=== PATIENT | male | born 1960 ===

== ENCOUNTER 2019-10-05 06:07 | Inpatient (IN) ==
[2019-10-05] MEDS ORDERED: GLUCAGON 1 MG VIAL IM PRN (08:49)
[2019-10-05] MEDS ORDERED: DEXTROSE 10% 250 ML BAG IV PRN (08:49)
[2019-10-05 12:07] LABS: Basophils % 0.3 % (0.0-0.8); Eosinophils % 0.2 % (0.00-10.9); Hematocrit 31.6 VOL% (42.0-52.0); Hemoglobin 10.7 GM/DL (14.0-18.0); Immature Granulocytes Absolute 0.28 #; Lymphocytes # 0.8 10*3/uL (1.4-4.0); Lymphocytes % 7.9 % (21.2-54.2); Mean Corpuscular HGB Conc 33.9 GM/DL (32-36); Mean Corpuscular Volume 88.5 FL (87-102); Mean Platelet Volume 9.2 FL (9.6-12.0); Monocytes % 3.6 % (1.7-12.7); NRBC # 0.02 10*3/uL; Platelet Count 517 T/CUMM (130-400); Red Blood Count 3.57 MC/CUMM (3.8-5.5); Red Cell Distribution Width 12.1 % (9.3-17.3); White Blood Count 9.5 T/CUMM (4-12)
[2019-10-05 12:29] LABS: Bilirubin,Total 0.4 MG/DL (0.2-1.0); Calcium 7.6 MG/DL (8.5-10.1); Osmolality,Calculated 278.7 MOS/KG (273-304); Total Protein 7.5 G/DL (6.4-8.3)
[2019-10-05] MEDS: INSULIN LISPRO 100 UNIT/ML SUBCUT SCH ×3 (12:30→20:13)
[2019-10-05] MEDS ORDERED: AZITHROMYCIN 250 MG TABLET PO ONE (14:00)
[2019-10-05] MEDS: GENTAMICIN 0.3% OPH SOLN 5 ML BOTTLE BOTH EYES SCH ×4 (16:00→23:26)
[2019-10-05] MEDS: cefTRIAXone 1,000 MG in SYRINGE 1 EACH IV SCH (17:18)
[2019-10-05] MEDS: HYDROXYCHLOROQUINE 200 MG TABLET PO SCH (20:13)
[2019-10-06] MEDS: GENTAMICIN 0.3% OPH SOLN 5 ML BOTTLE BOTH EYES SCH ×6 (02:54→21:12)
[2019-10-06 04:41] LABS: Basophils % 0.3 % (0.0-0.8); Eosinophils # 0.1 10*3/uL (0.0-0.87); Eosinophils % 1.2 % (0.00-10.9); Hematocrit 31.1 VOL% (42.0-52.0); Hemoglobin 10.7 GM/DL (14.0-18.0); Immature Granulocytes % 3.8 %; Lymphocytes # 0.8 10*3/uL (1.4-4.0); Lymphocytes % 7.7 % (21.2-54.2); Mean Corpuscular HGB Conc 34.4 GM/DL (32-36); Mean Corpuscular Volume 88.1 FL (87-102); Mean Platelet Volume 9.1 FL (9.6-12.0); Monocytes % 4.6 % (1.7-12.7); Neutrophils % 82.4 % (38.7-73.9); Platelet Count 523 T/CUMM (130-400); Red Blood Count 3.53 MC/CUMM (3.8-5.5); Red Cell Distribution Width 12.1 % (9.3-17.3); White Blood Count 10.6 T/CUMM (4-12)
[2019-10-06 05:21] LABS: Albumin 1.9 G/DL (3.4-5.0); Bilirubin,Total 0.9 MG/DL (0.2-1.0); Osmolality,Calculated 276.5 MOS/KG (273-304); Total Protein 7.6 G/DL (6.4-8.3)
[2019-10-06] MEDS: HYDROXYCHLOROQUINE 200 MG TABLET PO SCH ×2 (08:30→21:12)
[2019-10-06] MEDS: ZINC SULFATE 220 MG CAPSULE PO SCH (08:30)
[2019-10-06] MEDS: AZITHROMYCIN 250 MG TABLET PO SCH (08:35)
[2019-10-06 09:21] LABS: ABG Base Excess -0.9 MMOL/L (-2.5-2.5); ABG Oxygen Saturation 95.5 % (95-100); ABG PCO2 35.4 MM HG (35-48); ABG PH 7.431 (7.35-7.45); ABG PO2 80.1 MM HG (80-95); ABG TCO2 24.1 MMOL/L (23-27)
[2019-10-06] MEDS ORDERED: POTASSIUM CHLORIDE 20 MEQ TABLET PO ONE (10:06)
[2019-10-06] MEDS: INSULIN LISPRO 100 UNIT/ML SUBCUT SCH ×4 (10:23→21:11)
[2019-10-06 13:31] LABS: Apearance,Urine CLOUDY (Clear); Bacteria,Urine Many /HPF (Few); Bilirubin,Urine Negative (Negative); Blood, Urine Small mg/dL (Negative); Glucose,Urine (UA) >=500 mg/dL (Negative); Hyaline Casts,Urine 3 /LPF (0-3); Ketones,Urine Negative (Negative); Mucus,Urine Occasional /LPF (Occasional); Nitrite,Urine Negative (Negative); Protein,Urine 100 MG/DL; Sperm,Urine Few /HPF (Negative); Urine Color Yellow (Yellow); Urine Specific Gravity 1.017 (1.001-1.035); WBC,Urine 5 /HPF (0-6)
[2019-10-06] MEDS: cefTRIAXone 1,000 MG in SYRINGE 1 EACH IV SCH (17:43)
[2019-10-06] MEDS: SODIUM CHLORIDE 0.9% 1,000 ML IV SCH (18:57)
[2019-10-07] MEDS: GENTAMICIN 0.3% OPH SOLN 5 ML BOTTLE BOTH EYES SCH ×6 (01:26→21:10)
[2019-10-07 05:35] LABS: Basophils # 0.1 10*3/uL (0.0-0.2); Basophils % 0.5 % (0.0-0.8); Eosinophils # 0.2 10*3/uL (0.0-0.87); Eosinophils % 2.2 % (0.00-10.9); Hematocrit 31.9 VOL% (42.0-52.0); Hemoglobin 10.7 GM/DL (14.0-18.0); Immature Granulocytes % 4.2 %; Immature Granulocytes Absolute 0.44 #; Lymphocytes # 0.9 10*3/uL (1.4-4.0); Lymphocytes % 8.6 % (21.2-54.2); Mean Corpuscular HGB Conc 33.5 GM/DL (32-36); Mean Corpuscular Volume 88.9 FL (87-102); Mean Platelet Volume 9.1 FL (9.6-12.0); Monocytes % 6.8 % (1.7-12.7); Neutrophils % 77.7 % (38.7-73.9); Platelet Count 521 T/CUMM (130-400); Red Blood Count 3.59 MC/CUMM (3.8-5.5); Red Cell Distribution Width 12.1 % (9.3-17.3); White Blood Count 10.4 T/CUMM (4-12)
[2019-10-07 06:35] LABS: Albumin 1.7 G/DL (3.4-5.0); Bilirubin,Total 0.6 MG/DL (0.2-1.0); Calcium 7.7 MG/DL (8.5-10.1); Osmolality,Calculated 280.1 MOS/KG (273-304); Total Protein 7.3 G/DL (6.4-8.3)
[2019-10-07] MEDS: SODIUM CHLORIDE 0.9% 1,000 ML IV SCH ×2 (07:48→21:10)
[2019-10-07] MEDS: INSULIN LISPRO 100 UNIT/ML SUBCUT SCH ×4 (07:54→20:37)
[2019-10-07 08:32] LABS: Ferritin 1304.6 ng/ml (26-388)
[2019-10-07] MEDS: AZITHROMYCIN 250 MG TABLET PO SCH (09:09)
[2019-10-07] MEDS: HYDROXYCHLOROQUINE 200 MG TABLET PO SCH ×2 (09:09→20:38)
[2019-10-07 09:34] LABS: Apearance,Urine Cloudy (Clear); Glucose,Urine (UA) Negative (Negative); Ketones,Urine 25 mg/dL (Negative); Nitrite,Urine Negative (Negative); Protein,Urine 30 MG/DL; Urine Color Yellow (Yellow)
[2019-10-07 09:35] LABS: Bilirubin,Urine Negative (Negative)
[2019-10-07 09:36] LABS: Blood, Urine Large mg/dL (Negative)
[2019-10-07 09:40] LABS: Bacteria,Urine Occasional /HPF (Few); RBC,Urine 30 /HPF (0-4); Sperm,Urine Many /HPF (Negative); WBC,Urine 31 /HPF (0-6)
[2019-10-07 10:51] LABS: ABG Base Excess -1.8 MMOL/L (-2.5-2.5); ABG HCO3 22.8 MMOL/L (20-26); ABG Oxygen Saturation 95.8 % (95-100); ABG PCO2 36.6 MM HG (35-48); ABG PH 7.398 (7.35-7.45); ABG PO2 76.6 MM HG (80-95); ABG TCO2 20.4 MMOL/L (23-27); Allen Test Positive; Pt O2 Delivery Device Other
[2019-10-07] MEDS: cefTRIAXone 1,000 MG in SYRINGE 1 EACH IV SCH (14:22)
[2019-10-08] MEDS: GENTAMICIN 0.3% OPH SOLN 5 ML BOTTLE BOTH EYES SCH ×6 (01:25→22:29)
[2019-10-08 05:23] LABS: Basophils % 0.3 % (0.0-0.8); Eosinophils # 0.2 10*3/uL (0.0-0.87); Eosinophils % 1.9 % (0.00-10.9); Hematocrit 30.2 VOL% (42.0-52.0); Hemoglobin 10.2 GM/DL (14.0-18.0); Immature Granulocytes % 3.9 %; Immature Granulocytes Absolute 0.43 #; Lymphocytes # 0.9 10*3/uL (1.4-4.0); Lymphocytes % 7.7 % (21.2-54.2); Mean Corpuscular HGB Conc 33.8 GM/DL (32-36); Mean Corpuscular Volume 90.1 FL (87-102); Mean Platelet Volume 8.9 FL (9.6-12.0); Monocytes % 6.2 % (1.7-12.7); Platelet Count 514 T/CUMM (130-400); Red Blood Count 3.35 MC/CUMM (3.8-5.5); Red Cell Distribution Width 12.2 % (9.3-17.3)
[2019-10-08 05:33] LABS: Calcium 7.8 MG/DL (8.5-10.1); Osmolality,Calculated 274.1 MOS/KG (273-304)
[2019-10-08] MEDS ORDERED: POTASSIUM CHLORIDE 20 MEQ TABLET PO ONE (07:41)
[2019-10-08] MEDS: ZINC SULFATE 220 MG CAPSULE PO SCH (08:48)
[2019-10-08] MEDS: AZITHROMYCIN 250 MG TABLET PO SCH (08:48)
[2019-10-08] MEDS: HYDROXYCHLOROQUINE 200 MG TABLET PO SCH ×2 (08:48→21:09)
[2019-10-08] MEDS: INSULIN LISPRO 100 UNIT/ML SUBCUT SCH ×4 (09:00→21:09)
[2019-10-08] MEDS: SODIUM CHLORIDE 0.9% 1,000 ML IV SCH (10:37)
[2019-10-08] MEDS: cefTRIAXone 1,000 MG in SYRINGE 1 EACH IV SCH (14:05)
[2019-10-09] MEDS: GENTAMICIN 0.3% OPH SOLN 5 ML BOTTLE BOTH EYES SCH ×6 (02:12→21:20)
[2019-10-09 05:08] LABS: Calcium 7.5 MG/DL (8.5-10.1); Osmolality,Calculated 274.7 MOS/KG (273-304)
[2019-10-09] MEDS: AZITHROMYCIN 250 MG TABLET PO SCH (08:03)
[2019-10-09] MEDS: HYDROXYCHLOROQUINE 200 MG TABLET PO SCH ×2 (08:03→21:20)
[2019-10-09] MEDS: INSULIN LISPRO 100 UNIT/ML SUBCUT SCH ×4 (08:51→21:20)
[2019-10-09] MEDS: cefTRIAXone 1,000 MG in SYRINGE 1 EACH IV SCH (14:27)
[2019-10-10] MEDS: GENTAMICIN 0.3% OPH SOLN 5 ML BOTTLE BOTH EYES SCH ×6 (01:03→21:57)
[2019-10-10 03:49] LABS: Basophils # 0.1 10*3/uL (0.0-0.2); Basophils % 0.4 % (0.0-0.8); Eosinophils # 0.2 10*3/uL (0.0-0.87); Eosinophils % 1.3 % (0.00-10.9); Hematocrit 28.5 VOL% (42.0-52.0); Hemoglobin 9.6 GM/DL (14.0-18.0); Immature Granulocytes % 3.4 %; Immature Granulocytes Absolute 0.43 #; Lymphocytes # 1.3 10*3/uL (1.4-4.0); Lymphocytes % 10.4 % (21.2-54.2); Mean Corpuscular HGB Conc 33.7 GM/DL (32-36); Mean Corpuscular Volume 88.5 FL (87-102); Mean Platelet Volume 8.9 FL (9.6-12.0); Monocytes % 8.9 % (1.7-12.7); Neutrophils % 75.6 % (38.7-73.9); Platelet Count 489 T/CUMM (130-400); Red Blood Count 3.22 MC/CUMM (3.8-5.5); Red Cell Distribution Width 12.2 % (9.3-17.3); White Blood Count 12.7 T/CUMM (4-12)
[2019-10-10 04:18] LABS: Calcium 7.8 MG/DL (8.5-10.1); Osmolality,Calculated 273.1 MOS/KG (273-304)
[2019-10-10] MEDS: HYDROXYCHLOROQUINE 200 MG TABLET PO SCH (09:24)
[2019-10-10] MEDS: ZINC SULFATE 220 MG CAPSULE PO SCH (09:24)
[2019-10-10] MEDS: INSULIN LISPRO 100 UNIT/ML SUBCUT SCH ×4 (10:25→21:56)
[2019-10-11] MEDS: GENTAMICIN 0.3% OPH SOLN 5 ML BOTTLE BOTH EYES SCH ×6 (02:12→21:00)
[2019-10-11 05:21] LABS: Basophils # 0.1 10*3/uL (0.0-0.2); Basophils % 0.4 % (0.0-0.8); Eosinophils # 0.1 10*3/uL (0.0-0.87); Eosinophils % 0.8 % (0.00-10.9); Hematocrit 30.5 VOL% (42.0-52.0); Hemoglobin 9.9 GM/DL (14.0-18.0); Immature Granulocytes % 2.2 %; Immature Granulocytes Absolute 0.29 #; Lymphocytes % 7.8 % (21.2-54.2); Mean Corpuscular HGB Conc 32.5 GM/DL (32-36); Mean Corpuscular Volume 91.3 FL (87-102); Monocytes % 9.2 % (1.7-12.7); Neutrophils % 79.6 % (38.7-73.9); Platelet Count 574 T/CUMM (130-400); Red Blood Count 3.34 MC/CUMM (3.8-5.5); Red Cell Distribution Width 12.1 % (9.3-17.3); White Blood Count 13.4 T/CUMM (4-12)
[2019-10-11 05:45] LABS: Calcium 7.7 MG/DL (8.5-10.1)
[2019-10-11 06:22] LABS: Ferritin 1050.8 ng/ml (26-388)
[2019-10-11] MEDS: INSULIN LISPRO 100 UNIT/ML SUBCUT SCH ×4 (09:13→20:42)
[2019-10-12] MEDS: GENTAMICIN 0.3% OPH SOLN 5 ML BOTTLE BOTH EYES SCH ×6 (01:12→21:14)
[2019-10-12] MEDS: INSULIN LISPRO 100 UNIT/ML SUBCUT SCH ×4 (08:09→21:13)
[2019-10-12 10:56] LABS: Basophils % 0.3 % (0.0-0.8); Eosinophils # 0.1 10*3/uL (0.0-0.87); Eosinophils % 0.9 % (0.00-10.9); Hematocrit 30.2 VOL% (42.0-52.0); Hemoglobin 10.3 GM/DL (14.0-18.0); Immature Granulocytes % 1.6 %; Immature Granulocytes Absolute 0.21 #; Lymphocytes # 1.3 10*3/uL (1.4-4.0); Lymphocytes % 9.9 % (21.2-54.2); Mean Corpuscular HGB Conc 34.1 GM/DL (32-36); Neutrophils % 79.3 % (38.7-73.9); Platelet Count 562 T/CUMM (130-400); Red Blood Count 3.43 MC/CUMM (3.8-5.5); Red Cell Distribution Width 12.1 % (9.3-17.3); White Blood Count 12.9 T/CUMM (4-12)
[2019-10-13] MEDS: GENTAMICIN 0.3% OPH SOLN 5 ML BOTTLE BOTH EYES SCH ×3 (02:22→10:54)
[2019-10-13] MEDS ORDERED: metFORMIN 500 MG TABLET PO SCH (08:00)
[2019-10-13] MEDS: INSULIN LISPRO 100 UNIT/ML SUBCUT SCH ×2 (08:28→11:50)
[2019-10-13 11:52] VITALS: BP 132/68
== END 2019-10-13 15:11 | disposition home health service (06) | DRG 177 ==
LOC: SUATTDRO 08:29 → N.ICU 08:29 → N.CC 10-06 21:36 → N.2W 10-09 16:03
PROVIDERS: ADMIT Internal Medicine; ATTEND Internal Medicine